=== PATIENT | male | born 1985 | race Caucasian/White ===

== ENCOUNTER 2022-03-09 17:17 | Emergency (ER) | payer OTHER ==
[~2022-03-09] VITALS: Ht 182.9 cm; Wt 145.2 kg
[~2022-03-09 17:17] MED LIST: CIPR500 PO; CIPRSO RIGHTEYE; CYCL10 PO; DIAZ5 PO; HYDACE5 PO; HYDMOR2 PO; IBUP800 PO; METR500 PO; NAPR500 PO; OXYACE5T PO; OXYC1TAB11 PO; OXYC5 PO; PRED20 PO; Percocet 5-3251 EACH PO; RXOXYACE PO; SULTRIDS PO
[2022-03-09] MEDS ORDERED: HYDR1TAB94 PO (18:40)
[2022-03-09] MEDS ORDERED: Floxin10 ML LEFTEYE (18:46)
== END 2022-03-09 18:56 | disposition home or self-care (01) ==
LOC: ER 17:17
DX: H10.9 Unspecified conjunctivitis (principal); Z88.1 Allergy status to other antibiotic agents; Z87.891 Personal history of nicotine dependence
CPT/HCPCS: A9270

== ENCOUNTER 2022-04-25 05:25 | Emergency (ER) | payer OTHER ==
[~2022-04-25] VITALS: Ht 182.9 cm; Wt 138.3 kg
[~2022-04-25 05:25] MED LIST changes: +Floxin10 ML LEFTEYE; +HYDR1TAB94 PO
[2022-04-25] MEDS ORDERED: Neurontin 300300 MG PO (08:22)
[2022-04-25] MEDS ORDERED: Robaxin750 MG PO (08:22)
[2022-04-25] MEDS ORDERED: Norco 10-325 T1 EACH PO (09:26)
== END 2022-04-25 09:48 | disposition home or self-care (01) ==
LOC: ER 05:25
DX: M54.16 Radiculopathy, lumbar region (principal); Z87.891 Personal history of nicotine dependence; Z88.1 Allergy status to other antibiotic agents
CPT/HCPCS: A9270; J1885